=== PATIENT | female | born 1990 | race Caucasian/White ===

== ENCOUNTER 2016-07-06 01:27 | Inpatient (IN) | payer BC ==
[~2016-07-06] VITALS: Ht 172.7 cm; Wt 114.0 kg
--- NOTE | ~2016-07-06 | OR ---
PATIENT'S NAME: [facility] AGE: 25 Y [address] ROOM: [address]32[address] [place] [id number] LOCATION: GOBS ADMIT DATE: 07/07/2016 OR/Procedure Report DISCHARGE DATE: FAMILY PHYSICIAN: Azam Vaughan MD ATTENDING PHYSICIAN: Azam Vaughan SURGEON: Shankar Phillips MD REPAIRER ENGINE PRODUCTION: DATE OF PROCEDURE: 07/07/2016 This is a 25-year-old, 1, para 0, at 40 weeks gestation. She is a patient of Dr. Azam Vaughan'rene, who is out of town. She has a history of herpes simplex, genital. An outbreak early in . She has been on Valtrex 500 mg b.i.d. for the last 4 weeks. No recent sores. She also had a history of group B strep positive. She called saying that she had been having contractions off and on for the last 36 hours and then becoming much more closer and more painful. Upon arrival, she was found to be 7 cm with the heart tones reactive. She was adrien every 3 minutes or so. She was still intact. In approximately an hour and a half, she has spontaneous rupture of membrane which was clear and was complete. I came to the floor. After the test push, baby started to crown. I was unable to fully gown and glove at that point. At that point, also there was light meconium noted. Baby was delivered without difficulty and cord doubly clamped. The father cut the cord. Nursery personnel was present and the baby was handed to the nursery personnel. The baby did have spontaneous cry and was vigorous. Apgars of 8 and 9 respectively. Attention turned back to mother where cord blood was obtained. There was a second-degree midline tear which was repaired with 3-0 Vicryl after using lidocaine for anesthesia. Cervix and vagina check was normal. Sponge and needle counts were correct. Mom to breast-feed. Her rubella was equivocal on testing and MMR will be given. We will monitor baby because of group B strep status on only 1 dose of antibiotics for 48 hours and also watch for any herpes lesions. SHANKAR PHILLIPS MD TLP/modl /[id number] d: 07/07/16 0537 t: 08/02/16 0758, OPERATIVE SUMMARY
[2016-07-07 02:25] LABS: BASOPHIL % 0.2 %; EOSINOPHIL # 0.2 K/uL (0.0-0.5); EOSINOPHIL % 1.4 %; HEMOGLOBIN 12.5 g/dL (11.0-15.0); IMMATURE GRANULOCYTE # 0.1 K/uL (0.0-0.3); IMMATURE GRANULOCYTE % 0.4 %; LYMPHOCYTE # 1.6 K/uL (0.8-4.0); LYMPHOCYTE % 13.7 %; MCH 28.2 pg (27.0-34.0); MCHC 32.9 gm/dL (32.0-36.5); MCV 85.8 fl (83.0-98.0); MONOCYTE # 0.6 K/uL (0.0-1.0); MONOCYTE % 5.4 %; MPV 11.5 fl (9.4-12.4); NEUTROPHIL # (ANC) 8.9 K/uL (1.8-7.8); NEUTROPHIL % 78.9 %; NRBC % 0 /100WBC (0-0.00); PLATELET COUNT 174 K/uL (150-450); RBC 4.43 M/uL (3.50-5.00); RDW-CV 14.5 % (11.9-14.6); WBC 11.3 K/uL (4.0-11.0)
[2016-07-07] MEDS ORDERED: PRENATAL 1+1)(P1 TAB PO (03:05)
[2016-07-07] MEDS ORDERED: VALTREX (NON-F500 MG PO (03:06)
--- NOTE | 2016-07-08 05:51 | NUR ---
VSS. VOIDING W/OUT DIFFICULTY. HAS NOT TAKEN ANYTHING FOR PAIN. FUNDUS FIRM, -1, SMALL FLOW. TAKING VALTREX.
[2016-07-08 06:22] LABS: BASOPHIL % 0.2 %; EOSINOPHIL # 0.2 K/uL (0.0-0.5); HEMOGLOBIN 10.2 g/dL (11.0-15.0); IMMATURE GRANULOCYTE # 0.1 K/uL (0.0-0.3); IMMATURE GRANULOCYTE % 0.5 %; MCH 28.5 pg (27.0-34.0); MCHC 32.9 gm/dL (32.0-36.5); MCV 86.6 fl (83.0-98.0); MONOCYTE # 0.6 K/uL (0.0-1.0); MONOCYTE % 5.4 %; MPV 10.6 fl (9.4-12.4); NEUTROPHIL # (ANC) 7.3 K/uL (1.8-7.8); NEUTROPHIL % 71.9 %; NRBC % 0 /100WBC (0-0.00); PLATELET COUNT 143 K/uL (150-450); RBC 3.58 M/uL (3.50-5.00); RDW-CV 14.6 % (11.9-14.6); WBC 10.1 K/uL (4.0-11.0)
--- NOTE | 2016-07-08 17:52 | NUR ---
Last VS: T:98.0 P:76 R: 16 BP: 125/67 Pain rating: . Last pain med: None given Medicated at: Effective: Breasts: SOFT, Nipples: TENDER, HAS OINTMENT Fundus:, FIRM -1, Lochia: SM, Epis/Perineum: TENDER, , Voiding well: YES Significant event: .VIDEO AT BEDSIDE. NEEDS TO TURN IN BC AND DO PATERNITY.
--- NOTE | 2016-07-09 05:02 | NUR ---
Last VS: T:98.2 P:75 R: 16 BP: 128/75 Pain rating: . Last pain med: None given Medicated at: Effective: Breasts: NON-TENDER Nipples: Fundus:FIRM, EVEN 1 DOWN Lochia: SMALL FLOW Epis/Perineum: , , Voiding well: YES Significant event: ON VALTREX.
--- NOTE | 2016-07-09 16:39 | NUR ---
Last VS: T:98.2 P:80 R: 14 BP: 129/71 Pain ratin. Last pain med: None given Medicated at: Effective: Yes Breasts: SOFT & FILLING, Nipples: NEWMANNS AT BEDSIDE Fundus: FIRM, MIDLINE, Lochia: SMALL, RUBRA Epis/Perineum: APPROXIMATED Voiding well: YES Significant event: READY FOR DISMISSAL PENDING PHYSICIAN ORDERS. UP AND SHOWERED AND DOING WELL.
[2016-07-09] MEDS ORDERED: SURFAK240 MG PO (17:56)
[2016-07-09] MEDS ORDERED: APNO TOP (17:56)
== END 2016-07-09 18:55 | disposition disaster alternative care site (69) | DRG 774 ==
LOC: EDSTATUS 01:27 → GOBM 12:12 → GOBS 07-07 01:28
PROVIDERS: Family Medicine; ADMIT Family Medicine
PROC: 0KQM0ZZ Repair Perineum Muscle, Open Approach (ICD-10-PCS; principal; 2016-07-07)
PROC: 10E0XZZ Delivery of Products of Conception, External Approach (ICD-10-PCS; 2016-07-07)
DX: O70.1 Second degree perineal laceration during delivery (principal); O98.52 Other viral diseases complicating childbirth; Z37.0 Single live birth; Z3A.40 40 weeks gestation of pregnancy; B00.9 Herpesviral infection, unspecified
CPT/HCPCS: J2540; J2590; J7120